=== PATIENT | female | born 1950 | race Caucasian/White ===

== ENCOUNTER 2017-09-13 07:48 | Emergency (ER) | payer BC ==
[2017-09-13] MEDS ORDERED: HYDROcodone/Acetaminophen 5/325 mg Tablet ONE (08:28)
--- NOTE | 2017-09-13 10:04 | RAD ---
LUMBAR SPINE THREE VIEWS RADIOGRAPH SERIES: INDICATIONS: Low back pain. FINDINGS: There is a left convexity of the lumbar spine. There is mild to moderate multiple degenerative olvera es throughout the lumbar spine. A slight degree of retrolisthesis is seen at the L1-L2 level. There is trace spondylolisthesis at L3-L4. No compression fracture. IMPRESSION: Multilevel mild to moderate degenerative changes of the lumbar spine without acute compression deform ity. POS: [facility]
== END 2017-09-13 08:44 | disposition home or self-care (01) ==
LOC: SCSER 07:48
DX: M54.5 Low back pain (principal); I10 Essential (primary) hypertension; E78.5 Hyperlipidemia, unspecified; Z79.899 Other long term (current) drug therapy; W19.XXXA Unspecified fall, initial encounter
CPT/HCPCS: 72100

== ENCOUNTER 2018-04-17 13:08 | Inpatient (IN) | payer BC ==
[2018-04-17 16:02] VITALS: BMI 30.2
[2018-04-17] MEDS ORDERED: Chloraseptic Spray 180 ml Bottle PO PRN (17:13)
[2018-04-17] MEDS ORDERED: hydrALAZINE 20 MG/ML VIAL SLOW IVP PRN (17:17)
[2018-04-17] MEDS ORDERED: Morphine 4 MG/ML VIAL SLOW IVP PRN (17:17)
[2018-04-17] MEDS ORDERED: Acetaminophen 1,000 MG in Premix Bag 1 BAG IVPB PRN (17:19)
[2018-04-17] MEDS ORDERED: Ketorolac Tromethamine 30 MG/ML VIAL IVP PRN (17:19)
[2018-04-17] MEDS ORDERED: Lorazepam 2 MG/ML VIAL SLOW IVP PRN (17:20)
[2018-04-17] MEDS: Potassium Chloride 20 MEQ in Lactated Ringer's 1,000 ML IV SCH (18:39)
--- NOTE | 2018-04-17 20:46 | RAD ---
ABDOMEN TWO VIEWS: CHEST ONE VIEW: HISTORY: A 67-year-old female with small bowel obstruction by a [place] CT, which is not available. FINDINGS: An NG tube is in place, with the tip in the stomach, although the sidehole is above the level of the diaphragm, and this could be advanced 4 to 5 cm to completely have the sidehole enter the stomach. N o acute intrathoracic disease. Contrast media in nondilated renal collecting systems and bladder. D ilated small bowel loops in the mid abdomen, with air-fluid levels, evidence for small bowel obstruct ion, with minimal gas and fluid within the colon. No free intraperitoneal air. IMPRESSION: 1. Evidence for small bowel obstruction. 2. Nasogastric tube sidehole is above the level of the hemidiaphragm and could be advanced somewhat to more completely enter the stomach. 3. No acute intrathoracic disease. 4. Atherosclerosis of the aorta. POS: [facility]
[2018-04-17] MEDS ORDERED: Enoxaparin Sodium 40 MG/0.4 ML SYRINGE SC SCH (21:00)
--- NOTE | 2018-04-18 01:05 | HP ---
HISTORY OF PRESENT ILLNESS: Patience Vee is a 67-year-old female, who lives in [place]. She had acute onset of nausea, vomiting, and diarrhea this morning, presented to the [facility] [place]. Had laboratories, BUN 18, creatinine 0.94, sodium 143, potassium 3.2, chloride 107, carbon dioxide 23, calcium 9.6, bilirubin 0.7, alkaline phosphatase 75, SGOT 27, SGPT 20. White count 12, hemoglobin 13, and platelet count 318,000. Urinalysis unremarkable. CAT scan of the abdomen and pelvis revealed dilated loops of proximal small bowel, jejunum, and ileum, followed into the pelvis where alongside of small bowel seen with circumferential wall thickening and small bowel feces sign present proximal to this with distal ileal decompression. The patient had a colonoscopy about three years ago, that was normal. ALLERGIES: MEPERIDINE. SOCIAL HISTORY: Tobacco, none. Alcohol, none. MEDICATIONS: Tizanidine 4 mg p.r.n., phentermine daily 37.5, Singulair 10 mg a day, hydrocortisone acetate (Anusol) 25 mg per rectum b.i.d., estradiol vaginal cream, Zocor 20 mg at bedtime, lisinopril-hydrochlorothiazide (Prinzide) daily, Nexium daily 40 mg, alprazolam 0.5 mg b.i.d. p.r.n., [id number] in [place]. PAST SURGICAL HISTORY: Four C-sections, hysterectomy without oophorectomy, pilonidal cyst disease, [id number] with fistulotomy versus a sphincterotomy, it is hard to tell from her history. REVIEW OF SYSTEMS: Ten-point noncontributory. No cardiac history. PHYSICAL EXAMINATION: VITAL SIGNS: 5 feet 6 inches, 187 pounds. Temperature 98.8 degrees, pulse 69, blood pressure 157/83. HEAD, EARS, EYES, NOSE, AND THROAT: Unremarkable. LUNGS: Clear to auscultation. CARDIAC: Regular rate and rhythm without murmur or gallop. ABDOMEN: Soft and nontender. Well-healed infraumbilical scar from previous C-sections. No groin hernias. EXTREMITIES: Unremarkable. Varicosities noted. No extremity edema. SKIN: Normal color. NEUROLOGIC: Intact without deficit. ASSESSMENT AND PLAN: 1. Small bowel obstruction by CAT scan in [place]. Obtain x-ray of the abdomen tonight as her NG tube is of adequate size, but only at 52 cm. baseline abdominal x-rays. Repeat abdominal x-rays tomorrow along with a Gastrografin small-bowel follow-through. Dr. Bernal is following tomorrow and will assume her care. 2. Weight loss medications. 3. Elevated triglycerides, on medications. 4. Hypertension. Job ID: [id number]
[2018-04-18] MEDS: Potassium Chloride 20 MEQ in Lactated Ringer's 1,000 ML IV SCH (01:48)
[2018-04-18 06:29] LABS: #Basophils 0.1 thou/uL (0.0-0.2); #Eosinphils 0.1 thou/uL (0.0-0.7); #Monocytes 0.4 thou/uL (0.11-0.59); #Neutrophils 3.9 thou/uL (1.40-6.50); %Basophils 1.1 % (0.0-1.0); %Lymphocytes 18.7 % (21.0-51.0); %Monocytes 7.8 % (0.0-10.0); %Neutrophils 71.4 % (42.0-75.0); Hemoglobin 11.6 g/dL (12.0-16.0); Mean Corpuscular Hemoglobin 26.6 pg (27.0-31.0); Mean Corpuscular Volume 83.1 fL (78.0-98.0); Mean Platelet Volume 8.7 fL (7.4-10.4); Platelet Count 262 thou/uL (130-400); Red Blood Cell (RBC) Count 4.38 mill/uL (4.20-5.40); White Blood Cell (WBC) Count 5.5 thou/uL (4.8-10.8)
[2018-04-18 06:45] LABS: ALT (SGPT) 10 U/L (8-55); AST (SGOT) 14 U/L (5-34); Albumin 3.2 g/dL (3.4-4.8); Alkaline Phosphatase 55 U/L (40-150); Anion Gap 13 mmol/L (10-20); BUN (Urea Nitrogen) 16 mg/dL (9.8-20.1); Bilirubin, Total 0.6 mg/dL (0.2-1.2); Calc. Creatinine Clearance 96 mL/min (70-130); Calcium 8.1 mg/dL (7.8-10.44); Carbon Dioxide 23 mmol/L (23-31); Chloride 110 mmol/L (98-107); Estimated GFR-MDRD 76; Globulin 2.2 g/dL (2.4-3.5); Glucose 96 mg/dL (80-115); Potassium 3.8 mmol/L (3.5-5.1); Protein, Total 5.4 g/dL (6.0-8.3); Sodium 142 mmol/L (136-145)
[2018-04-18] MEDS ORDERED: Pantoprazole 40 MG VIAL IVP SCH (09:00)
--- NOTE | 2018-04-18 09:38 | PRG ---
DATE OF SERVICE: 04/18/2018 SUBJECTIVE: The patient is a 67-year-old female admitted yesterday evening with small-bowel obstruction. She has nasogastric tube in place. This has apparently been functioning well overnight. She notes that her abdomen feels well, and she has no complaints except those related to the nasogastric tube. She has had no flatus or bowel movement. OBJECTIVE: VITAL SIGNS: On examination, she is afebrile with normal vital signs. LUNGS: Clear to auscultation. ABDOMEN: Soft and nontender. LABORATORY DATA: Labs from this morning reveal a white blood cell count of 5.5 with a hemoglobin of 11.6. Her electrolytes are essentially normal. ASSESSMENT: The patient is stable after admission for small-bowel obstruction. She has been treated with conservative management with nasogastric tube. Small bowel follow-through with Gastrografin is ordered for this morning. Hopefully, this will show resolution of her bowel obstruction. The patient understands that surgery is possible depending upon findings with her studies. Job ID: [id number]
--- NOTE | 2018-04-18 10:26 | RAD ---
ABDOMEN 2 VIEWS: HISTORY: Abdominal pain. Small bowel obstruction. COMPARISON: 04/17/2018. FINDINGS: Nasogastric tube is now in good radiographic position. Gas is evident within the colon. Scattered n ondilated gas-filled loops of small bowel throughout the abdomen are present. The dilatation and dif ferential air fluid levels on the previous study are not visible. No evidence of free intraperitonea l gas. IMPRESSION: 1. Significant interval improvement in radiographic appearance of small bowel gas pattern. 2. small bowel follow through exam is pending. POS: [facility]
--- NOTE | 2018-04-18 13:24 | RAD ---
GASTROGRAFIN SMALL BOWEL FOLLOW-THROUGH: 04/18/2018 HISTORY: Small bowel obstruction. FINDINGS: Immediate post administration of Gastrografin, imaging demonstrates contrast media within nondilated loops of small bowel within the left upper abdomen. Fifteen minute imaging is unchanged. Thirty min nulato imaging is also unchanged, with contrast media within proximal nondilated small bowel loops. At 45 minutes, there is slight progression of contrast media into the pelvis, to the left of midline, wi th a single mildly dilated loop of small bowel noted in the left lower quadrant. At one hour, findin gs are unchanged. At two hour imaging, contrast media has reached the colon, with no dilated bowel s een. IMPRESSION: Contrast media extends to the colon within two hours. No evidence for high grade small bowel obstruc tion. POS: [facility]
[2018-04-18 16:34] VITALS: BP 159/84; TEMP 97.6
== END 2018-04-18 18:55 | disposition home or self-care (01) | DRG 390 ==
LOC: ERS 13:08 → SURG A 15:57
PROVIDERS: ADMIT Specialist; ATTEND Specialist
DX: K56.609 Unspecified intestinal obstruction, unspecified as to partial versus complete obstruction (principal); Z88.8 Allergy status to other drugs, medicaments and biological substances; I10 Essential (primary) hypertension; E78.1 Pure hyperglyceridemia; Z88.5 Allergy status to narcotic agent; E78.5 Hyperlipidemia, unspecified
CPT/HCPCS: 36415; 74019; 74022; 74250; 80053; 85025; 99284; C9113; J0131; J1650; J3480; J7120

== ENCOUNTER 2018-05-17 13:10 | Inpatient (IN) | payer BC ==
[2018-05-17 13:48] LABS: #Lymphocytes 0.7 thou/uL (1.20-3.40); #Monocytes 0.4 thou/uL (0.11-0.59); #Neutrophils 10.6 thou/uL (1.40-6.50); %Basophils 0.1 % (0.0-1.0); %Eosinophils 0.2 % (0.0-10.0); %Lymphocytes 6.2 % (21.0-51.0); %Neutrophils 90.4 % (42.0-75.0); Hemoglobin 14.4 g/dL (12.0-16.0); Mean Corpuscular Hemoglobin 27.8 pg (27.0-31.0); Mean Corpuscular Volume 81.6 fL (78.0-98.0); Mean Platelet Volume 8.6 fL (7.4-10.4); Platelet Count 277 thou/uL (130-400); RBC Distribution Width 13.7 % (11.5-14.5); White Blood Cell (WBC) Count 11.7 thou/uL (4.8-10.8)
[2018-05-17 13:51] LABS: Bilirubin Negative (Negative); Blood, Urine Negative (Negative); Clarity CLEAR (Clear); Glucose, Urine (Dipstick) Negative (Negative); Leukocyte Negative (Negative); Nitrite Negative (Negative); Protein, Urine (Dipstick) Trace mg/dL (Neg-Trace); Specific Gravity, Urine 1.023 (1.002-1.036); Urobilinogen 0.2 mg/dL (0.2-1.0)
[2018-05-17 14:19] LABS: ALT (SGPT) 14 U/L (8-55); AST (SGOT) 19 U/L (5-34); Albumin 4.3 g/dL (3.4-4.8); Alkaline Phosphatase 73 U/L (40-150); Anion Gap 16 mmol/L (10-20); BUN (Urea Nitrogen) 18 mg/dL (9.8-20.1); Bilirubin, Total 0.7 mg/dL (0.2-1.2); Calc. Creatinine Clearance 0 mL/min (70-130); Calcium 9.3 mg/dL (7.8-10.44); Carbon Dioxide 22 mmol/L (23-31); Chloride 106 mmol/L (98-107); Estimated GFR-MDRD 64; Globulin 3.1 g/dL (2.4-3.5); Glucose 120 mg/dL (80-115); Lipase 18 U/L (8-78); Protein, Total 7.4 g/dL (6.0-8.3); Sodium 140 mmol/L (136-145)
[2018-05-17] MEDS ORDERED: Ondansetron PF 4 MG/2 ML Vial ONE (15:04)
[2018-05-17] MEDS ORDERED: Morphine 4 MG/ML VIAL ONE ×2 (15:04→18:06)
[2018-05-17] MEDS ORDERED: Lidocaine Viscous Sol 2% 15 ml UD Cup ONE (18:08)
[2018-05-17] MEDS ORDERED: Pantoprazole 40 MG VIAL ONE (18:33)
--- NOTE | 2018-05-17 18:37 | CT ---
CT ABDOMEN AND PELVIS WITH IV CONTRAST 05/17/18 Multiple axial tomograms obtained through the abdomen and pelvis with IV enhancement. INDICATION: Abdominal pain. History of small bowel obstruction. No comparison studies available. Correlation with small bowel exam of 04/18/18 showed mild nonspecific small bowel dilatation with con trast reaching the colon at two hours. FINDINGS: Lung bases clear. There is small volume ascites with fluid around the liver margin. The gallbladder is distended. There is a cyst in the caudate lobe of the liver measuring 2.7 cm. Spleen and pancreas unremarkable. Adren al glands unremarkable. Right renal cyst from the superolateral cortex measures 4 cm in coronal plane . Kidneys otherwise unremarkable. No hydronephrosis. Urinary bladder unremarkable. There are contrast filled proximal small bowel and mild fluid filled mid small bowel which are dilate d. The distal small bowel loops are decompressed. The findings are consistent with moderate grade sma ll bowel obstruction in the mid to distal small bowel. There is mural thickening in distal small dieter l loops and there is fluid density surrounding mid and distal small bowel loops. Terminal ileum is no rmal caliber. Colon is nondistended. Small amount of free fluid in the deep pelvis. Aorta normal caliber. No adenopathy. IMPRESSION: 1. Dilated proximal and mid small bowel loops with decompressed distal ileum. Mural thickening i n what appears to be distal ileum with fluid surrounding several of the distal small bowel loops. Moderate grade small bowel obstruction and possible enteritis involving the ileum is suspected. 2. Small volume ascites. 3. Hepatic cyst. 4. Gallbladder distention. Gallstones may not be apparent on CT. 5. Right renal cyst as described. POS: [facility]
[2018-05-17] MEDS ORDERED: Morphine 4 MG/ML VIAL SLOW IVP PRN (19:34)
[2018-05-17] MEDS ORDERED: Dextrose 5% in Water 1,000 ML IV PRN (19:34)
[2018-05-17] MEDS ORDERED: Dextrose 50% Abboject 50 ML SYRINGE SLOW IVP PRN (19:34)
--- NOTE | 2018-05-17 19:57 | RAD ---
PORTABLE CHEST: 05/17/18 PROVIDED CLINICAL HISTORY: Chest pain. FINDINGS: Comparison 04/17/18. The cardiac and mediastinal silhouette is unchanged in appearance. Enteric catheter is noted, the pro ximal side hole lucency of which is projecting in the region of the main pulmonary artery and the dis davis tip of which projects proximal to the expected location of the GE junction. No focal consolidatio n, pleural fluid or pneumothorax apparent. IMPRESSION: Enteric catheter positioning as above. POS: [facility]
[2018-05-17] MEDS: D5 1/2 NS w/20 mEq KCL 1,000 ML IV SCH (21:58)
[2018-05-17] MEDS: Famotidine/PF 20 mg/2ml Vial SLOW IVP SCH (21:58)
[2018-05-17] MEDS: Ondansetron PF 4 MG/2 ML Vial IVP PRN (21:58)
[2018-05-17 22:10] VITALS: BMI 28.1
--- NOTE | 2018-05-17 22:25 | HP ---
CHIEF COMPLAINT: Abdominal pain with nausea and vomiting. HISTORY OF PRESENT ILLNESS: The patient is a 67-year-old white female from [place]. She was admitted to this hospital on April 17 with small-bowel obstruction. This was presumed to be related to adhesions from her hysterectomy. She was treated with nonoperative management with nasogastric decompression. A Gastrografin small bowel follow through the next day was negative. She had multiple bowel movements. She was able to tolerate liquids and discharged home the day after her admission. She tells me that she has been well in the intervening month. She has had no problems or symptoms until today. This morning, she again developed some abdominal pain with nausea and vomiting. When this persisted, she presented to the emergency room. CT scan was obtained again and demonstrated evidence of small bowel dilatation, potentially consistent with small bowel obstruction. Nasogastric tube was placed. She tells me that she feels better at this time. PAST MEDICAL HISTORY: Hypertension, hyperlipidemia. PAST SURGICAL HISTORY: x4, hysterectomy without oophorectomy, pilonidal surgery, anal fistulotomy. MEDICATIONS: 1. Zocor. 2. Lisinopril/hydrochlorothiazide/estrogen vaginal cream. ALLERGIES: MEPERIDINE. PERSONAL AND SOCIAL HISTORY: She lives near [place]. She is . She has 4 children. She works at [employer]. She does not smoke. Drinks alcohol rarely. REVIEW OF SYSTEMS: Otherwise unremarkable. FAMILY HISTORY: Noncontributory. PHYSICAL EXAMINATION: VITAL SIGNS: She is afebrile and vital signs within normal limits. GENERAL: She is a well-developed, well-nourished, pleasant white female, resting in bed, in no acute distress. She is alert and oriented x3. HEAD, EYES, EARS, NOSE, AND THROAT: Unremarkable. NECK: Supple without mass or tenderness. LUNGS: Clear to auscultation throughout. CARDIAC: Regular rate and rhythm without murmur. ABDOMEN: Soft, nontender, and nondistended with normoactive bowel sounds. EXTREMITIES: Unremarkable. LABORATORY DATA: CBC reveals white blood cell count of 11.7, hemoglobin 14.4. Chemistry profile is entirely normal except that carbon dioxide is slightly low at 22. ASSESSMENT: The patient with recurrent small-bowel obstruction. PLAN: Nasogastric tube placement on admission. I suspect that this will resolve with a course of decompression as well. She is motivated to be discharged and if she has an event, she would like to attend in a couple of days. I told her that recurrence of small-bowel obstruction so quickly after her last admission is an ominous sign that this is likely to continue to cause problems. Small-bowel follow-through to be obtained in the morning. If this is unremarkable, then she can be discharged. If it does not pass through, then she will require surgery to address her obstruction. Job ID: [id number]
[2018-05-17] MEDS ORDERED: HYDROcodone/Acetaminophen 5/325 mg Tablet PO PRN ×2 (22:26)
[2018-05-17] MEDS ORDERED: Acetaminophen 325 MG TAB PO PRN (22:26)
[2018-05-17] MEDS ORDERED: Ondansetron PF 4 MG/2 ML Vial IVP PRN (22:26)
[2018-05-17] MEDS ORDERED: Ondansetron ODT 4 MG TAB SL PRN (22:26)
[2018-05-18] MEDS: D5 1/2 NS w/20 mEq KCL 1,000 ML IV SCH ×2 (03:47→14:30)
[2018-05-18] MEDS: Ondansetron PF 4 MG/2 ML Vial IVP PRN ×2 (06:18→12:29)
[2018-05-18 06:40] LABS: #Basophils 0.1 thou/uL (0.0-0.2); #Eosinphils 0.1 thou/uL (0.0-0.7); #Lymphocytes 1.4 thou/uL (1.20-3.40); #Monocytes 0.5 thou/uL (0.11-0.59); #Neutrophils 4.8 thou/uL (1.40-6.50); %Basophils 0.8 % (0.0-1.0); %Eosinophils 0.9 % (0.0-10.0); %Lymphocytes 20.8 % (21.0-51.0); %Monocytes 7.1 % (0.0-10.0); %Neutrophils 70.4 % (42.0-75.0); Hemoglobin 12.7 g/dL (12.0-16.0); Mean Corpuscular HGB CONC 32.7 g/dL (32.0-36.0); Mean Corpuscular Hemoglobin 26.8 pg (27.0-31.0); Mean Platelet Volume 8.4 fL (7.4-10.4); Platelet Count 265 thou/uL (130-400); RBC Distribution Width 13.9 % (11.5-14.5); Red Blood Cell (RBC) Count 4.73 mill/uL (4.20-5.40); White Blood Cell (WBC) Count 6.8 thou/uL (4.8-10.8)
[2018-05-18 07:01] LABS: Anion Gap 15 mmol/L (10-20); BUN (Urea Nitrogen) 12 mg/dL (9.8-20.1); Calc. Creatinine Clearance 93 mL/min (70-130); Calcium 8.5 mg/dL (7.8-10.44); Carbon Dioxide 23 mmol/L (23-31); Chloride 107 mmol/L (98-107); Estimated GFR-MDRD 74; Glucose 111 mg/dL (80-115); Potassium 3.6 mmol/L (3.5-5.1); Sodium 141 mmol/L (136-145)
[2018-05-18] MEDS: Famotidine/PF 20 mg/2ml Vial SLOW IVP SCH (08:02)
--- NOTE | 2018-05-18 14:37 | RAD ---
SMALL BOWEL FOLLOW THROUGH: DATE: 05/18/2018. PROVIDED CLINICAL HISTORY: Small bowel obstruction. 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 Oral contrast material is given through the patient's enteric catheter, with contrast mate rial traversing nondilated small bowel and opacifying the right colon at th e2-hour radha. IMPRESSION: No evidence for small bowel obstruction. POS: [facility]
[2018-05-18 16:24] VITALS: BP 163/82; TEMP 98.3
--- NOTE | 2018-05-19 04:11 | DIS ---
DATE OF ADMISSION: 05/17/2018 DATE OF DISCHARGE: 05/18/2018 HOSPITAL COURSE: Ms. Vee was admitted yesterday with a diagnosis of small bowel obstruction. This was recurrent from a similar episode about a month ago. The CT scan showed only moderate small bowel distention; however, she did present with abdominal pain, nausea, and vomiting. Nasogastric tube has been in place overnight, although she has had very little output. Initial x-ray obtained today revealed that all of the contrast from her CT scan had passed into her colon. A small bowel follow-through was then obtained today with passage through into the colon by 2 hours. She has subsequently had a watery bowel movement consistent with Gastrografin passage. She has been afebrile with normal vital signs and mild hypertension. Her CBC had revealed a normalization of her white blood cell count from 11.7 yesterday to 6.8 today. Her electrolytes were unremarkable. In summary, she is doing well following her conservative management of her bowel obstruction. Nasogastric tube was removed today and she was started on clear liquids. I anticipate, she will tolerate these and be okay for discharge later. She is given my card and asked to follow up with myself in 2 weeks. Job ID: [id number]
== END 2018-05-18 17:05 | disposition home or self-care (01) | DRG 390 ==
LOC: ERS 13:10 → ERHOLD 19:06 → SURG B 21:40
PROVIDERS: ADMIT Specialist; ATTEND Specialist
PROC: 0D9670Z Drainage of Stomach with Drainage Device, Via Natural or Artificial Opening (ICD-10-PCS; principal; 2018-05-17)
DX: K56.609 Unspecified intestinal obstruction, unspecified as to partial versus complete obstruction (principal); E78.5 Hyperlipidemia, unspecified; I10 Essential (primary) hypertension; Z88.6 Allergy status to analgesic agent
CPT/HCPCS: 36415; 71045; 74177; 74250; 80048; 80053; 81003; 83690; 85025; 96361; 96374; 96375; 96376; C9113; J2270; J2405; Q0162; S0028

== ENCOUNTER 2019-10-31 10:37 | Outpatient (CLI) | payer BC | END 2019-10-31 10:38 | disposition home or self-care (01) | LOC: CTENTCT 10:37 | PROVIDERS: ATTEND Otolaryngology Plastic Surgery within the Head & Neck | DX: J32.9 Chronic sinusitis, unspecified (principal) | CPT/HCPCS: 70486 ==

== ENCOUNTER 2019-12-27 07:23 | Outpatient (CLI) | payer BC, OTHER ==
[2019-12-27 16:27] LABS: Hemoglobin 14.3 g/dL (12.0-16.0)
--- NOTE | 2019-12-27 16:51 | EKG ---
Test Reason : Blood Pressure : / mmHG Vent. Rate : 063 BPM Atrial Rate : 063 BPM P-R Int : 154 ms QRS Dur : 074 ms QT Int : 422 ms P-R-T Axes : 033 051 023 degrees QTc Int : 431 ms Normal sinus rhythm Normal ECG No previous ECGs available Confirmed by DR. Grisel GOMEZ ([id number]) on 12/27/2019 4:51:32 PM Referred By: JULIET Confirmed By:DR. Grisel GOMEZ
[2019-12-27 17:46] LABS: Anion Gap 16 mmol/L (10-20); BUN (Urea Nitrogen) 17 mg/dL (9.8-20.1); Calc. Creatinine Clearance 0 mL/min (70-130); Calcium 8.8 mg/dL (7.8-10.44); Carbon Dioxide 25 mmol/L (23-31); Chloride 106 mmol/L (98-107); Estimated GFR-MDRD 62; Glucose 79 mg/dL (80-115); Potassium 4.1 mmol/L (3.5-5.1); Sodium 143 mmol/L (136-145)
[2019-12-28 14:04] LABS: SARS-CoV-2 MS2 Positive; SARS-CoV-2 N Gene Negative; SARS-CoV-2 S Gene Negative; SARS-CoV-2 by NAA Not Detected (NotDetected); SARS-CoV-2 orf1ab Negative
== END 2019-12-27 07:24 | disposition home or self-care (01) ==
LOC: LABBT 07:23
PROVIDERS: ATTEND Otolaryngology Plastic Surgery within the Head & Neck
DX: Z01.818 Encounter for other preprocedural examination (principal); Z20.828 Contact with and (suspected) exposure to other viral communicable diseases; J32.9 Chronic sinusitis, unspecified; J30.9 Allergic rhinitis, unspecified; J34.3 Hypertrophy of nasal turbinates
CPT/HCPCS: 80048; 85014; 85018; 87635; 93005; 93010; U0003

== ENCOUNTER 2020-01-01 07:51 | Day surgery (SDC) | payer BC ==
[2019-12-30 14:29] VITALS: BMI 31.4
[2020-01-01] MEDS ORDERED: AFRIN NASAL MIST 15 ML BOT ONE ×2 (08:59→09:16)
[2020-01-01] MEDS ORDERED: Scopolamine 1.5 mg/72 hour Patch ONE (08:59)
[2020-01-01] MEDS ORDERED: Bacitracin Zinc Ointment 30 gm TUBE ONE (09:16)
[2020-01-01] MEDS ORDERED: Lidocaine 1% w/Epinephrine 1:100K 20 ML VIAL ONE (09:16)
[2020-01-01] MEDS ORDERED: Fentanyl 100 MCG/2 ML VIAL ONE ×2 (09:53→11:18)
[2020-01-01] MEDS ORDERED: Midazolam HCl 2 mg/2 ml Vial ONE (10:18)
[2020-01-01] MEDS ORDERED: Dexamethasone 20 MG/5 ML VIAL ONE (10:33)
[2020-01-01] MEDS ORDERED: Ondansetron PF 4 MG/2 ML Vial ONE (10:33)
[2020-01-01] MEDS ORDERED: Lidocaine 1% PF 5 ML VIAL ONE (10:33)
[2020-01-01] MEDS ORDERED: PROPOFOL 200 MG/20 ML VIAL ONE (10:33)
[2020-01-01] MEDS ORDERED: hydrALAZINE 20 MG/ML VIAL ONE (11:11)
[2020-01-01] MEDS ORDERED: HYDROcodone/Acetaminophen 5/325 mg Tablet ONE ×2 (12:22→13:36)
[2020-01-01] MEDS ORDERED: Morphine 2 MG/ML VIAL ONE (13:35)
[2020-01-01] MEDS ORDERED: Sodium Chloride 0.9% 10 ML ONE (13:39)
--- NOTE | 2020-01-02 13:06 | OP ---
DATE OF PROCEDURE: 01/01/2020 PREOPERATIVE DIAGNOSES: 1. Chronic rhinosinusitis. 2. Bilateral inferior turbinate hypertrophy. 3. Dynamic valve collapse. 4. Nasal obstruction. POSTOPERATIVE DIAGNOSES: 1. Chronic rhinosinusitis. 2. Bilateral inferior turbinate hypertrophy. 3. Dynamic valve collapse. 4. Nasal obstruction. PROCEDURES PERFORMED: 1. Bilateral endoscopic sinus surgery, total ethmoidectomy and sphenoidotomies with removal of tissue. 2. Bilateral endoscopic sinus surgery, maxillary antrostomies. 3. Bilateral endoscopic sinus surgery, frontal sinus exploration. 4. Bilateral inferior turbinate submucosal resection. 5. Bilateral repair of lateral nasal wall . ESTIMATED BLOOD LOSS: 30 mL. COMPLICATIONS: None. ANESTHESIA: GETA. DESCRIPTION OF PROCEDURE: The patient was taken to the operating room and placed supine on the table. General endotracheal anesthesia was obtained by the Anesthesia Staff. Tube was secured in the left lower lip. The patient was placed in a beach-chair position. She was prepped and draped for standard nasal procedure. Following this, a 0-degree endoscope was advanced in the nasal cavity. 1% lidocaine with 1:100,000 epinephrine was injected into the inferior turbinates, middle turbinates, and lateral nasal wall bilaterally. Following this, the middle turbinates were gently medialized and the uncinate process was identified bilaterally. The uncinate process was anteriorly fractured using a ball-ended probe and the uncinate process was then removed using the 0-degree microdebrider and up-biting Blakesley forceps bilaterally. Following this, the natural maxillary sinus ostia was identified using a ball-ended probe and the 0-degree endoscope. The natural ostium was then widened using the straight Blakesley forceps and the 40-degree microdebrider blade, that was performed bilaterally. Following this, the ethmoidal bulla was identified bilaterally and was then punctured with the 0-degree microdebrider on its medial and inferior aspect. The ethmoidal bulla was then opened using the microdebrider and up-biting Blakesley forceps bilaterally. Following this, the grand lamella was identified and was punctured into the posterior ethmoidal cells using the 0-degree microdebrider. Polypoid mucosa and nasal polyps were encountered in the posterior ethmoidal cells extending over and abutting the sphenoid sinus ostia. These polyps were removed using 0 degree Blakesley forceps and microdebrider bilaterally. Following this, the anterior wall of the sphenoid sinus was identified and was punctured using the 0-degree microdebrider and the sphenoidotomy was then widened bilaterally using the 0-degree microdebrider in a medial and an inferior direction. Following this, working from posterior to anterior keeping the cribriform plate in view, the posterior ethmoidal cells were opened using the 0-degree microdebrider, 40-degree microdebrider, and up-biting Blakesley forceps. Following this, a 45-degree endoscope was used to visualize the frontal sinus recess and frontal sinus ostia. The frontal sinus ostia was widened using the 40-degree microdebrider bilaterally. Following this, the inferior turbinates were punctured on the anterior and inferior aspect and submucosal resection was performed of the anterior and inferior portions of the inferior turbinates bilaterally. Following this, the nasal cavity was irrigated and NasoPore packing was placed within the middle meatus bilaterally. Following this, the [place] elevator was used to identify the significant cartilaginous weakness and collapse present in the lower third of the nose. A small transcartilaginous incision was made with a 15 blade and a nasal speculum and a graft was placed overlying the nasal bone and extending into the alar crease bilaterally, which allowed for repair of the collapsed nasal valve bilaterally. An incision was then closed using 5-0 chromic gut stitch. The patient tolerated the procedure well. Job ID: [id number]
== END 2020-01-01 14:15 | disposition home or self-care (01) ==
LOC: SDC 07:51
PROVIDERS: ATTEND Otolaryngology Plastic Surgery within the Head & Neck
PROC: 09CW8ZZ Extirpation of Matter from Right Sphenoid Sinus, Via Natural or Artificial Opening Endoscopic (ICD-10-PCS; principal; 2020-01-01)
PROC: 09CX8ZZ Extirpation of Matter from Left Sphenoid Sinus, Via Natural or Artificial Opening Endoscopic (ICD-10-PCS; principal; 2020-01-01)
PROC: 09BT8ZZ Excision of Left Frontal Sinus, Via Natural or Artificial Opening Endoscopic (ICD-10-PCS; principal; 2020-01-01)
PROC: 09BS8ZZ Excision of Right Frontal Sinus, Via Natural or Artificial Opening Endoscopic (ICD-10-PCS; principal; 2020-01-01)
PROC: 09BU8ZZ Excision of Right Ethmoid Sinus, Via Natural or Artificial Opening Endoscopic (ICD-10-PCS; principal; 2020-01-01)
PROC: 09BV8ZZ Excision of Left Ethmoid Sinus, Via Natural or Artificial Opening Endoscopic (ICD-10-PCS; principal; 2020-01-01)
PROC: 099R8ZZ Drainage of Left Maxillary Sinus, Via Natural or Artificial Opening Endoscopic (ICD-10-PCS; principal; 2020-01-01)
PROC: 099Q8ZZ Drainage of Right Maxillary Sinus, Via Natural or Artificial Opening Endoscopic (ICD-10-PCS; principal; 2020-01-01)
PROC: 09BL8ZZ Excision of Nasal Turbinate, Via Natural or Artificial Opening Endoscopic (ICD-10-PCS; principal; 2020-01-01)
DX: J32.9 Chronic sinusitis, unspecified (principal); J34.89 Other specified disorders of nose and nasal sinuses; J34.3 Hypertrophy of nasal turbinates; Z79.899 Other long term (current) drug therapy; Z88.5 Allergy status to narcotic agent
CPT/HCPCS: J0360; J1100; J2250; J2270; J2405; J2704; J3010